=== PATIENT | male | born 1950 | race Caucasian/White ===

== ENCOUNTER → 2016-09-23 | Outpatient (CLI) | payer MEDICARE, OTHER ==
[~2016-09-23] VITALS: Ht 170.2 cm; Wt 99.3 kg
[~2016-09-23] MED LIST: ASPI1TAB PO; CARV6.25 PO; CHLO125TA PO; INSUHUMDS SC; INSULANT SC; LISI-538 PO; METF500T13 PO; NS 1,000 ML IV ONE; OMEP20CA3 PO; PROPOFOL 200 MG/20 ML VIAL As Ordered ONE; REPA1TAB4 PO; ROSU20TA PO; SLOWTAB2 PO; SPIR25TA2 PO; ZYRT10TA2 PO
--- NOTE | 2016-09-23 11:12 | ROOR ---
Patient Name: Seng Zamorano Procedure Date: 09/23/2016 10:46 AM Date of : 1950 Age: 66 Room: [facility] Gender: Male Note Status: Finalized Procedure: Colonoscopy Indications: Screening for colorectal malignant neoplasm Providers: Silviano SIMMONS MD Referring MD: LUIS CAZARES MD Requesting Provider: Medicines: Monitored Anesthesia Care Complications: No immediate complications. Procedure: Pre-Anesthesia Assessment: - The heart rate, respiratory rate, oxygen saturations, blood pressure, adequacy of pulmonary ventilation, and response to care were monitored throughout the procedure. The Colonoscope was introduced through the anus and advanced to the cecum, identified by appendiceal orifice and ileocecal valve. The colonoscopy was performed without difficulty. The patient tolerated the procedure well. The quality of the bowel preparation was good. Findings: The perianal and digital rectal examinations were normal. Three sessile polyps were found in the transverse colon. The polyps were 4 to 6 mm in size. These polyps were removed with a cold snare. Resection and retrieval were complete. To prevent bleeding after the polypectomy, two hemostatic clips were successfully placed. A few diverticula were found in the sigmoid colon. Internal hemorrhoids were found during retroflexion. The hemorrhoids were small. The exam was otherwise without abnormality on direct and retroflexion views. Impression: - Three 4 to 6 mm polyps in the transverse colon, removed with a cold snare. Resected and retrieved. Clips were placed. - Mild diverticulosis in the sigmoid colon. - Internal hemorrhoids. - The examination was otherwise normal on direct and retroflexion views. Recommendation: - Repeat colonoscopy in 3 years for surveillance. Silviano Simmons MD Silviano SIMMONS MD 09/23/2016 11:12:05 AM This report has been signed electronically. Number of Addenda: 0 Note Initiated On: 09/23/2016 10:46 AM Estimated Blood Loss: Estimated blood loss: none.
== END ==
LOC: M OPP 09:15
PROVIDERS: ATTEND Internal Medicine Gastroenterology
DX: Z12.11 Encounter for screening for malignant neoplasm of colon (principal); D12.3 Benign neoplasm of transverse colon; K64.8 Other hemorrhoids; K57.30 Diverticulosis of large intestine without perforation or abscess without bleeding; Z79.899 Other long term (current) drug therapy; K21.9 Gastro-esophageal reflux disease without esophagitis

== ENCOUNTER → 2020-11-07 | Outpatient (CLI) | payer MEDICARE, OTHER ==
[~2020-11-07] MED LIST changes: -ASPI1TAB PO; +ASPI81TA26 PO; +HUMU1INJ2 SC; -LISI-538 PO; +LISI20TA33 PO; -NS 1,000 ML IV ONE; +OMEP1CAP73 PO; -OMEP20CA3 PO; -PROPOFOL 200 MG/20 ML VIAL As Ordered ONE; -ROSU20TA PO; +ROSU20TA5 PO; +SPIR-10 PO; -SPIR25TA2 PO; +ZYRT10CA5 PO; -ZYRT10TA2 PO
== END ==
LOC: M LABSMTC 09:26
PROVIDERS: ATTEND Anesthesiology
DX: Z01.812 Encounter for preprocedural laboratory examination (principal); Z20.822 Contact with and (suspected) exposure to COVID-19

== ENCOUNTER 2020-11-12 06:34 | Day surgery (SDC) | payer MEDICARE, OTHER ==
[~2020-11-12] VITALS: Ht 170.2 cm; Wt 98.9 kg
[~2020-11-12 06:34] MED LIST changes: +NS 1,000 ML IV ONE
[2020-11-12] MEDS ORDERED: SIMETHICONE 40MG/0.6ML DROPS 30ML As Ordered ONE (06:48)
[2020-11-12] MEDS ORDERED: LIDOCAINE 2% 100MG/5ML SDV (FOR ANES.) As Ordered ONE (07:21)
[2020-11-12] MEDS ORDERED: propofoL 200 MG/20 ML VIAL As Ordered ONE (07:21)
--- NOTE | 2020-11-12 07:53 | ROOR ---
Patient Name: Seng Zamorano Procedure Date: 11/12/2020 7:31 AM Date of : 1950 Age: 70 Room: [facility] Gender: Male Note Status: Finalized Procedure: Colonoscopy Indications: High risk colon cancer surveillance: Personal history of colonic polyps Providers: Silviano Rousseau MD Referring MD: LUIS CAZARES MD Requesting Provider: Medicines: Monitored Anesthesia Care Complications: No immediate complications. Procedure: Pre-Anesthesia Assessment: - The heart rate, respiratory rate, oxygen saturations, blood pressure, adequacy of pulmonary ventilation, and response to care were monitored throughout the procedure. The Colonoscope was introduced through the anus and advanced to the terminal ileum, with identification of the appendiceal orifice and IC valve. The colonoscopy was performed without difficulty. The patient tolerated the procedure well. The quality of the bowel preparation was good. Findings: The perianal and digital rectal examinations were normal. Two sessile polyps were found in the sigmoid colon. The polyps were diminutive in size. These polyps were removed with a cold snare. Resection and retrieval were complete. Mild sigmoid diverticulosis and small internal hemorrhoids. The exam was otherwise without abnormality on direct and retroflexion views. Impression: - Two diminutive polyps in the sigmoid colon, removed with a cold snare. Resected and retrieved. - Mild sigmoid diverticulosis and small internal hemorrhoids. - The examination was otherwise normal on direct and retroflexion views. Recommendation: - Repeat colonoscopy in 5 years for surveillance. Procedure Code(s): --- Professional --- 83961, Colonoscopy, flexible; with removal of tumor(s), polyp(s), or other lesion(s) by snare technique Diagnosis Code(s): --- Professional --- Z86.010, Personal history of colonic polyps K63.5, Polyp of colon CPT copyright 2019 [employer]. All rights reserved. The codes documented in this report are preliminary and upon second ride fare collector review may be revised to meet current compliance requirements. Silviano Rousseau MD Silviano Rousseau MD 11/12/2020 7:53:08 AM Electronically signed by Silviano Rousseau MD Number of Addenda: 0 Note Initiated On: 11/12/2020 7:31 AM Estimated Blood Loss: Estimated blood loss: none.
[2020-11-12 08:15] VITALS: BP 128/76
== END 2020-11-12 08:19 | disposition home or self-care (01) ==
LOC: M OPP 06:34
PROVIDERS: ATTEND Internal Medicine Gastroenterology
DX: Z12.11 Encounter for screening for malignant neoplasm of colon (principal); Z86.010 Personal history of colon polyps; K63.5 Polyp of colon; K57.30 Diverticulosis of large intestine without perforation or abscess without bleeding; K64.8 Other hemorrhoids; Z79.82 Long term (current) use of aspirin; Z79.4 Long term (current) use of insulin; Z79.899 Other long term (current) drug therapy; Z88.0 Allergy status to penicillin; Z87.891 Personal history of nicotine dependence

== ENCOUNTER → 2024-12-20 | Outpatient (CLI) | payer MEDICARE, OTHER ==
[~2024-12-20] MED LIST changes: +ISOVUE-370 76% 100 ML VIAL ONE; -NS 1,000 ML IV ONE; -ROSU20TA5 PO; +ROSU20TA86 PO; +SLOW1TAB3 PO; -SLOWTAB2 PO
== END ==
LOC: M PLAIMG 08:35
PROVIDERS: ATTEND Internal Medicine
DX: R31.9 Hematuria, unspecified (principal)
CPT/HCPCS: 74178; Q9967

== ENCOUNTER → 2025-01-06 | Outpatient (CLI) | payer MEDICARE, OTHER ==
[~2025-01-06] MED LIST changes: -ISOVUE-370 76% 100 ML VIAL ONE
== END ==
LOC: M PLAIMG 11:58
PROVIDERS: ATTEND Internal Medicine
DX: R91.8 Other nonspecific abnormal finding of lung field (principal); M47.814 Spondylosis without myelopathy or radiculopathy, thoracic region